=== PATIENT | male | born 1930 | race African-American/Black ===

== ENCOUNTER 2017-04-03 13:55 | Emergency (ER) | payer OTHER, MEDICAID ==
[~2017-04-03] VITALS: Ht 182.9 cm; Wt 85.0 kg
[~2017-04-03 13:55] MED LIST: SULF1TAB48 PO
[2017-04-03] MEDS ORDERED: BACITRACIN ZINC OINT UDPKT TOP ONE (16:15)
[2017-04-04 12:55] VITALS: BP 159/78
== END 2017-04-03 19:03 | disposition home or self-care (01) ==
LOC: ER 14:10
DX: L03.116 Cellulitis of left lower limb (principal); L03.115 Cellulitis of right lower limb; I10 Essential (primary) hypertension; F03.90 Unspecified dementia, unspecified severity, without behavioral disturbance, psychotic disturbance, mood disturbance, and anxiety
CPT/HCPCS: 99283

== ENCOUNTER 2017-08-24 12:22 | Emergency (ER) | payer OTHER, MEDICAID ==
[~2017-08-24] VITALS: Ht 177.8 cm; Wt 90.0 kg
[2017-08-24 12:28] VITALS: BP 145/77
[2017-08-24] MEDS ORDERED: ACETAMINOPHEN 325MG TABLET PO ONE (13:15)
== END 2017-08-24 14:35 | disposition left against medical advice (07) ==
LOC: ER 12:37
DX: M25.562 Pain in left knee (principal); M25.561 Pain in right knee; I10 Essential (primary) hypertension; F03.90 Unspecified dementia, unspecified severity, without behavioral disturbance, psychotic disturbance, mood disturbance, and anxiety
CPT/HCPCS: 99283

== ENCOUNTER 2017-09-05 17:39 | Emergency (ER) | payer OTHER, MEDICAID ==
[~2017-09-05] VITALS: Ht 180.3 cm; Wt 79.0 kg
[2017-09-05 17:41] VITALS: BP 125/51
== END 2017-09-05 18:49 | disposition left against medical advice (07) ==
LOC: ER 17:52
DX: Z00.8 Encounter for other general examination (principal); Z53.21 Procedure and treatment not carried out due to patient leaving prior to being seen by health care provider